=== PATIENT | male | born 1980 | race Caucasian/White ===

== ENCOUNTER 2017-09-12 02:19 | Emergency (ER) | payer SELFPAY ==
[~2017-09-12] VITALS: Ht 165.1 cm; Wt 49.2 kg
[2017-09-12 02:22] VITALS: BP 109/72
[2017-09-12] MEDS ORDERED: ONDANSETRON ODT 4 MG ONE (02:50)
[2017-09-12] MEDS ORDERED: ONDANSETRON ODT 4 MG PO ONE (03:00)
== END 2017-09-12 04:02 | disposition home or self-care (01) ==
LOC: ED 03:50
DX: R11.0 Nausea (principal)
CPT/HCPCS: 93005; 99283; Q0162